=== PATIENT | male | born 1980 | race Caucasian/White ===

== ENCOUNTER 2019-01-03 19:45 | Emergency (ER) | payer SELFPAY ==
[~2019-01-03] VITALS: Ht 188 cm; Wt 66.2 kg
[2019-01-03 19:45] VITALS: BP_SYST 155
--- NOTE | 2019-01-03 19:45 | NUR ---
Patient to [facility] for evaluation. Patient brought in custody of [employer], patient ambulatory with handcuffs on.
--- NOTE | 2019-01-03 19:47 | NUR ---
ER at bedside examining patient.
--- NOTE | 2019-01-03 20:56 | NUR ---
Pt requested to call his to notify her what was going on and to ask her what is going on with patient. Reyna called back and informed that patient is having a tough time with the procedure. Pt "keeps pushing me and his mother away thinking no one cares." Pt was seen at [facility] and was kicked out due to being irrate. Per , "it's a good thing he was picked up by [facility] because now he can get help." Informed patient was prescribed Keflex for infection. states she is grateful for us calling and updating her on patient's status.
[2019-01-03 20:57] VITALS: BP_SYST 146
--- NOTE | 2019-01-03 20:57 | NUR ---
Patient given written and verbal discharge instructions and verbalizes understanding. ER MD discussed with patient the results and treatment provided. Patient in stable condition. ID arm band removed. Rx of Keflex and Acetaminophen given. Patient educated on pain management and to follow up with PMD. Pain Scale 0. Accompanied by [facility]. Opportunity for questions provided and answered. Medication side effect fact sheet provided.
== END 2019-01-03 20:57 ==
LOC: SED 19:45
DX: G89.18 Other acute postprocedural pain (principal); R10.9 Unspecified abdominal pain; R03.0 Elevated blood-pressure reading, without diagnosis of hypertension; Z90.49 Acquired absence of other specified parts of digestive tract
CPT/HCPCS: 99283